=== PATIENT | female | born 1975 | race Hispanic/Latino ===

== ENCOUNTER 2019-09-24 23:15 | Emergency (ER) | payer OTHER, SELFPAY ==
[2019-09-24 23:25] VITALS: BP 153/75; PULSE 85; RESP 15; TEMP 36.7; O2SAT 100; BMI 30.7
--- NOTE | 2019-09-24 23:25 | ED_ITS ---
HPI - Dental/Oral General Chief complaint: Dental/Oral Stated complaint: left side jaw pain since dentist, into chest Time Seen by Provider: 09/24/19 23:25 History of Present Illness HPI Narrative: 44-year-old woman with recent dental work, distant root canal with crown recently placed on that tooth and amalgam fillings removed and replaced with porcelain has been having increasing temperature sensitivity in the left lower quadrant where the dental work has been done but she can not l ocalize it to the specific tooth. She had noticed increasing pain and tenderness and was started on clindamycin by her dentist and has had 4 doses. She is noticing that the pain is continuing to escalate and she is now having some swelling along the angle of the jaw with left anterior cervical adenopathy. She does not have trismus, no obviously pointing dental abscess, no drainage sensation in her mouth, no fevers. The pain is severe enough that is radiating into her jaw and down the side of her neck. She has been taking 800 mg of ibuprofen with Tylenol and is finding it ineffective in controlling her pain. She reports no chest pain, palpitations shortness of breath. Related Data Previous Rx's Medication Instructions Recorded triamcinolone acetonide 0 gm TOPICAL BID #15 gm 04/09/17 gabapentin 300 mg capsule 300 mg PO BEDTIME #30 cap 09/25/17 trazodone 100 mg tablet 100 mg PO HS #30 tab 02/05/18 cyclobenzaprine 10 mg tablet 10 mg PO BEDTIME #30 tab 08/10/18 metronidazole 500 mg PO TID #15 tab 09/24/19 Allergies Allergy/AdvReac Type Severity Reaction Status Date / Time ciprofloxacin [From CIPRO] Allergy Mild RASH Verified 08/10/18 13:24 Review of Systems Review of Systems Narrative: Remainder of review of systems including constitutional, ENT, cardiovascular, respiratory, GI, , musculoskeletal, skin, neurologic and psychiatric systems reviewed and are unremarkable except as noted in HPI. Patient History Surgical History History of breast augmentation Status post hernia repair (12/23/13) Status post laparoscopic cholecystectomy Status post tubal ligation Family History Brother CAD (coronary artery disease) Father Epilepsy Mother Age: 86 Diabetes mellitus Obesity High cholesterol Social History Smoking Status: Never smoker Exam Narrative Exam Narrative: General: Alert appropriate in no acute distress HEENT: Dentition is appropriate no redness in the left lower quadrant which is the area of tenderness. No discharge. She does have some fullness along the angle of the jaw and extending under the chin with anterior adenopathy. She is able to fully open her mouth and is not having any difficulty with swallowing fullness extending down her neck. Respiratory: Able to speak in full sentences, no obvious respiratory distress Skin: No obvious rashes, warm and dry Neurologic: Grossly intact no obvious asymmetries or abnormalities Psych, appropriate insight and affect, cooperative Initial Vital Signs Initial Vital Signs: Vital Signs Temperature 98.1 F 09/24/19 23:25 Pulse Rate 85 09/24/19 23:25 Respiratory Rate 15 09/24/19 23:25 Blood Pressure 153/75 H 09/24/19 23:25 Pulse Oximetry 100 09/24/19 23:25 Course Orders Ordered: Discontinued Medications Metronidazole (Metronidazole) 250 mg PO NOW ONE Stop: 09/24/19 23:40 Oxycodone/Acetaminophen (Percocet 5/325) 2 tab PO NOW ONE Stop: 09/24/19 23:40 Oxycodone/Acetaminophen (Endocet 5/325 Prepack) 1 bottle MISC SEEINSTR ONE Stop: 09/24/19 23:40 Vital Signs Vital signs: Vital Signs - 8 hr 09/24/19 23:25 Temperature 98.1 F Pulse Rate 85 Respiratory Rate 15 Blood Pressure 153/75 H Pulse Oximetry 100 MDM - Dental/Oral MDM Narrative Medical decision making narrative: Dental pain and tenderness in an area of recent dental work suspect that she has a dental infection and probably is going to need of root canal. Will add metronidazole to recurrent clindamycin and give her 10 tablets of Percocet to help with pain. She will contact her dentist tomorrow for definitive care. She is safe for home discharge Discharge Plan Departure Patient Disposition: Home Clinical Impression: Dental abscess Instructions: Tooth Abscess Activity Restrictions/Additional Instructions: Thank you for coming in today Dental pain can be so frustrating. Using 400 mg of ibuprofen (2 [id number] pills) and 1 Tylenol every 6 hours can be very helpful in controlling pain. For severe pain use 400 mg of ibuprofen and 1 Percocet every 6 hours. I am going to add an antibiotic called metronidazole/Flagyl to the clindamycin that you currently are taking. 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 The prescription has been electronically transmitted to [facility] in [facility]. Please call your dentist tomorrow for help in finding the underlying problem. Good luck Prescriptions: New metronidazole 500 mg tablet 500 mg PO TID Qty: 15 RF: 0 No Action cyclobenzaprine 10 mg tablet 10 mg PO BEDTIME Qty: 30 RF: 0 triamcinolone acetonide 0.1 % ointment 0 gm Topical BID Qty: 15 RF: 0 gabapentin 300 mg capsule 300 mg PO BEDTIME Qty: 30 RF: 2 trazodone 100 mg tablet 100 mg PO HS Qty: 30 RF: 2 Referrals: Deidre Enamorado ARNP [Primary Care Provider] -
[2019-09-24] MEDS: OXYCODONE/ACETAMINOPHEN 5/325 TABLET 2 TAB PO (23:49)
[2019-09-24] MEDS: OXYCODONE/APAP 5/325 PREPACK 1 BOTTLE MISC (23:49)
[2019-09-24] MEDS: metroNIDAZOLE 250 MG TABLET PO (23:49)
== END 2019-09-24 23:58 | disposition home or self-care (01) ==
PROVIDERS: Emergency Provider Emergency Medicine; PCP Internal Medicine
DX: K04.7 Periapical abscess without sinus (principal)
CPT/HCPCS: 99283

== ENCOUNTER 2019-09-25 18:44 | Emergency (ER) | payer OTHER, SELFPAY ==
--- NOTE | 2019-09-25 18:58 | ED.NAVMDI ---
HPI - Nausea/Vomiting/Diarrhea General Chief complaint: Nausea/Vomiting/Diarrhea Stated complaint: VOMITING Time Seen by Provider: 09/25/19 18:45 Source: patient and family Mode of arrival: Ambulatory Limitations: no limitations History of Present Illness HPI Narrative: 44-year-old female nonsmoker presents with her for the 2nd time for evaluation of ongoing dental pain with nausea and vomiting. She was seen by her dentist on Saturday and had a crown placed with replacement of porcelain on left lower teeth. She had been prescribed clindamycin and given Percocet but has had pain which is increasing. She denies any fever or chills. She has had no facial pain or swelling. She denies any chest pain or shortness of breath. She is not dizzy nor weak or lightheaded. She re-contacted her dentist but he is currently out of town until Saturday. She has not vomited in quite a few hours. She denies exposure to ill persons. She states it is not uncommon for her to have a ?weak stomach?. MD complaint: nausea and vomiting Onset (ago): hour(s) Description of Vomiting: food contents Description of Diarrhea: none Associated Abdominal Pain: No Exacerbating factors: vomiting and medication Context: recent antibiotic use Associated symptoms: denies other symptoms Related Data Previous Rx's Medication Instructions Recorded triamcinolone acetonide 0 gm TOPICAL BID #15 gm 04/09/17 gabapentin 300 mg capsule 300 mg PO BEDTIME #30 cap 09/25/17 trazodone 100 mg tablet 100 mg PO HS #30 tab 02/05/18 cyclobenzaprine 10 mg tablet 10 mg PO BEDTIME #30 tab 08/10/18 metronidazole 500 mg PO TID #15 tab 09/24/19 metronidazole 500 mg PO TID #15 tab 09/24/19 ondansetron 4 mg PO Q6H PRN #10 tab 09/25/19 Allergies Allergy/AdvReac Type Severity Reaction Status Date / Time ciprofloxacin [From CIPRO] Allergy Mild RASH Verified 08/10/18 13:24 Review of Systems Constitutional Constitutional: Denies chills, Denies fatigue, Denies fever(s), Denies frequent falls, Denies lethargy and Denies weakness Eyes Eyes: Denies change in vision, Denies eye discharge, Denies irritation and Denies loss of vision ENT Ears, Nose, Mouth, and Throat: Denies change in voice, Reports dental pain, Denies dizziness, Denies neck pain, Denies sore throat and Denies throat swelling Cardiovascular Cardiovascular: Denies chest pain, Denies irregular heart rhythm, Denies lightheadedness, Denies palpitations, Denies dyspnea, Denies dyspnea on exertion and Denies orthopnea Respiratory Respiratory: Denies cough, Denies dyspnea, Denies dyspnea on exertion and Denies wheezing Gastrointestinal Gastrointestinal: Denies abdominal pain, Denies change in bowel habits, Denies diarrhea, Reports nausea and Reports vomiting Musculoskeletal Musculoskeletal: Denies neck pain and Denies numbness Integumentary/Breasts Skin/Breast: Denies pruritus, Denies erythema, Denies rash and Denies wounds Neurologic Neurologic: Denies behavioral changes, Denies confusion, Denies dizziness, Denies frequent falls, Denies loss of vision, Denies numbness and Denies weakness Psychiatric Psychiatric: Denies anxiety, Denies behavioral changes, Denies confusion, Denies depression, Denies homicidal ideation and Denies suicidal ideation Endocrine Endocrine: Denies fatigue, Denies flushing and Denies palpitations Hematologic/Lymphatic Hematologic/Lymphatic: Denies easy bruising Allergic/Immunologic Allergic/Immunologic: Denies urticaria, Denies throat swelling and Denies wheezing Patient History Surgical History History of breast augmentation Status post hernia repair (12/23/13) Status post laparoscopic cholecystectomy Status post tubal ligation Family History Brother CAD (coronary artery disease) Father Epilepsy Mother Age: 86 Diabetes mellitus Obesity High cholesterol Social History Smoking Status: Never smoker Smoking Status: Never smoker Substance Use Type: does not use Exam Narrative Exam Narrative: GENERAL: [44] year old patient appears stated age. Well-nourished, well-developed patient, in mild distress. HEAD: Atraumatic. Normocephalic. EYES: Pupils equal round and reactive. Extraocular motions intact. No scleral icterus. No injection or drainage. ENT: No facial swelling or obvious intraoral abscess, swelling or drainage Nose without bleeding, purulent drainage. Throat without erythema, tonsillar hypertrophy or exudate. Airway patent. NECK: Trachea midline. Non tender CARDIOVASCULAR: Regular rate and rhythm without murmurs, gallops, or rubs. RESPIRATORY: Clear to auscultation. Breath sounds equal bilaterally. No wheezes, rales, or rhonchi. GASTROINTESTINAL: Abdomen soft, non-tender, nondistended. EXTREMITIES: No edema or joint tenderness. BACK: Nontender without deformity or crepitance. No flank tenderness. NEURO: AOx3. SKIN: No rash or erythema of visible areas Initial Vital Signs Initial Vital Signs: Vital Signs Temperature 98.4 F 09/25/19 19:05 Pulse Rate 99 H 09/25/19 19:05 Respiratory Rate 17 09/25/19 19:05 Blood Pressure 131/79 09/25/19 19:05 Pulse Oximetry 99 09/25/19 19:05 Course Orders Ordered: ED Orders 09/25/19 19:35 Basic Metabolic Panel Stat Complete Blood Count AUTO DIFF Stat Discontinued Medications Hydromorphone HCl (Dilaudid) 0.5 mg IV NOW ONE Stop: 09/25/19 19:47 Last Admin: 09/25/19 19:49 Dose: 0.5 mg Documented by: ANURADHA Sodium Chloride (Normal Saline 0.9%) 1,000 mls @ 1,000 mls/hr IV BOLUS ONE Stop: 09/25/19 20:11 Last Infusion: 09/25/19 21:01 Dose: 0 mls/hr Documented by: Admin: 09/25/19 19:50 Dose: 1,000 mls/hr Documented by: ANURADHA Ondansetron HCl (Zofran) 4 mg IV Q4HR PRN PRN Reason: Nausea And Vomiting Last Admin: 09/25/19 19:49 Dose: 4 mg Documented by: ANURADHA Ondansetron HCl (Zofran Odt Prepack) 1 bottle MISC SEEINSTR ONE Stop: 09/25/19 20:35 Last Admin: 09/25/19 20:48 Dose: 1 bottle Documented by: NAVJOT Pantoprazole Sodium (Protonix) 40 mg IV NOW ONE Stop: 09/25/19 19:13 Last Admin: 09/25/19 19:49 Dose: 40 mg Documented by: ANURADHA Vital Signs Vital signs: Vital Signs - 8 hr 09/25/19 19:05 09/25/19 20:50 Temperature 98.4 F Pulse Rate 99 H 87 Respiratory Rate 17 Blood Pressure 131/79 130/78 Pulse Oximetry 99 98 MDM - Nausea/Vomiting/Diarrhea Lab Data Result diagrams: 09/25/19 19:35 09/25/19 19:35 Labs: Lab Results 09/25/19 09/25/19 Range/Units 19:35 19:35 WBC 11.1 H (4.5-11.0) X10^3/uL RBC 4.56 (4.0-5.2) X10^6/uL Hgb 14.8 (12.0-16.0) g/dL Hct 43.2 (36-46) % MCV 94.8 (80-100) fL MCH 32.4 (26-34) PG MCHC 34.2 (30-36) % RDW 12.6 (11.6-14.8) % Plt Count 253 (150-400) X10^3/uL Neut % (Auto) 85.9 H (50-75) % Lymph % (Auto) 8.3 L (25-40) % [place] % (Auto) 5.4 (3-14) % Eos % (Auto) 0.1 L (2-4) % Baso % (Auto) 0.3 (0-2) % Neut # (Auto) 9500 H (7695-5099) /uL Lymph # (Auto) 900 L (5081-3981) /uL [place] # (Auto) 600 (0-900) /uL Eos # (Auto) 0 (0-450) /uL Baso # (Auto) 0 (0-100) /uL Sodium 136 L (137-145) mmol/L Potassium 4.2 (3.4-5.1) mmol/L Chloride 101 (98-107) mmol/L Carbon Dioxide 25 (22-32) mmol/L BUN 15 (7-17) mg/dL Creatinine 0.40 L (0.52-1.04) mg/dL Estimated GFR > 60.0 (>60) mL/min BUN/Creatinine Ratio 37.5 H (6-22) Glucose 93 (70-100) mg/dL Calcium 9.4 (8.4-10.2) mg/dL Discharge Plan Departure Patient Disposition: Home Clinical Impression: Dehydration, Acute vomiting Discharge Date/Time: 09/25/19 20:50 Instructions: DI for Dehydration -- Adult, DI for Vomiting -- Adult Activity Restrictions/Additional Instructions: 1. Drink plenty of fluids with frequent small sips. 2. For the next 24 hours a clear liquid diet is advised. After that please employ a brat diet which would include bananas, rice, apples, toast. 3. There is currently no sign of infection, given how sensitive you are to antibiotics I think it is reasonable to not take them until you follow up with your dentist. 4. Please follow-up with your dentist in the next 1-2 days. Call the office for an appointment. 5. Please return to the emergency Department for any worsening or persistent symptoms, such as increasing pain or fever. Prescriptions: New ondansetron 4 mg tablet,disintegrating 4 mg PO Q6H PRN (Reason: nausea and vomiting) Qty: 10 RF: 0 No Action cyclobenzaprine 10 mg tablet 10 mg PO BEDTIME Qty: 30 RF: 0 triamcinolone acetonide 0.1 % ointment 0 gm Topical BID Qty: 15 RF: 0 gabapentin 300 mg capsule 300 mg PO BEDTIME Qty: 30 RF: 2 trazodone 100 mg tablet 100 mg PO HS Qty: 30 RF: 2 metronidazole 500 mg tablet 500 mg PO TID Qty: 15 RF: 0 metronidazole 500 mg tablet 500 mg PO TID Qty: 15 RF: 0 Referrals: Deidre Enamorado ARNP [Primary Care Provider] -
[2019-09-25 19:05] VITALS: BP 131/79; PULSE 99; RESP 17; TEMP 36.9; O2SAT 99; BMI 30.7
--- NOTE | 2019-09-25 19:38 | PC.NURSE ---
reports she has trouble taking medications. seen here for tooth pain yesterday and given abx and pain medication. states she did not take the flagyl. she took the ciprofloxacin today and vomited immediatley afterwards. Reports tooth pain. provider aware and aknowledged information.
[2019-09-25 19:39] LABS: Add Manual Diff / Slide Review NO; Basophils Absolute Auto 0 /uL (0-100); Basophils Percent Auto 0.3 % (0-2); Eosinophils Absolute Auto 0 /uL (0-450); Eosinophils Percent Auto 0.1 % (2-4); Hematocrit 43.2 % (36-46); Hemoglobin 14.8 g/dL (12.0-16.0); Lymphocytes Absolute Auto 900 /uL (1100-4500); Lymphocytes Percent Auto 8.3 % (25-40); Mean Corpuscular HGB Conc 34.2 % (30-36); Mean Corpuscular Hemoglobin 32.4 PG (26-34); Mean Corpuscular Volume 94.8 fL (80-100); Monocytes Absolute Auto 600 /uL (0-900); Monocytes Percent Auto 5.4 % (3-14); Neutrophils Absolute Auto 9500 /uL (1500-7000); Neutrophils Percent Auto 85.9 % (50-75); Platelet Count 253 X10^3/uL (150-400); Red Blood Cell Count 4.56 X10^6/uL (4.0-5.2); Red Cell Distribution Width 12.6 % (11.6-14.8); White Blood Cell Count 11.1 X10^3/uL (4.5-11.0)
[2019-09-25] MEDS: HYDROMORPHONE 0.5 MG INJ IV (19:49)
[2019-09-25] MEDS: PANTOPRAZOLE 40 MG VIAL IV (19:49)
[2019-09-25] MEDS: ONDANSETRON 4 MG/2 ML INJ IV (19:49)
[2019-09-25] MEDS: SODIUM CHLORIDE 0.9% 1,000 ML 1000 ML IV (19:50)
[2019-09-25 19:51] LABS: BUN Creatinine Ratio 37.5 (6-22); Blood Urea Nitrogen 15 mg/dL (7-17); Calcium 9.4 mg/dL (8.4-10.2); Carbon Dioxide 25 mmol/L (22-32); Chloride 101 mmol/L (98-107); Estimated Glomerular Filt Rate > 60.0 mL/min (>60); Glucose 93 mg/dL (70-100); HEMOLYSIS 40 (0-50); Potassium 4.2 mmol/L (3.4-5.1); Sodium 136 mmol/L (137-145)
[2019-09-25] MEDS: ONDANSETRON 4 MG ODT PREPACK 1 BOTTLE MISC (20:48)
[2019-09-25 20:50] VITALS: BP 130/78; PULSE 87; O2SAT 98
== END 2019-09-25 20:50 | disposition home or self-care (01) ==
PROVIDERS: Emergency Provider Emergency Medicine; PCP Internal Medicine
DX: E86.0 Dehydration (principal); R11.2 Nausea with vomiting, unspecified; K08.89 Other specified disorders of teeth and supporting structures
CPT/HCPCS: 36415; 80048; 85025; 96361; 96374; 96375; 99284; C9113; J1170; J2405

== ENCOUNTER 2020-04-29 12:28 | Emergency (ER) | payer OTHER, SELFPAY ==
[2020-04-29 12:41] VITALS: BP 118/70; PULSE 83; RESP 14; TEMP 36.3; O2SAT 98
[2020-04-29 13:01] LABS: Appearance Urine UA CLOUDY; Bilirubin Urine UA NEGATIVE (NEGATIVE); Color Urine UA RED; Glucose Urine UA NEGATIVE (Negative); Ketones Urine UA NEGATIVE (NEGATIVE); Leukocyte Esterase Urine UA TRACE (NEGATIVE); Nitrite Urine UA NEGATIVE (Negative); Occult Blood Urine UA 3+ (Negative); Protein Urine UA TRACE (Negative); Specific Gravity Urine UA 1.015 (1.000-1.035); Urobilinogen Urine UA 0.2 E.U./dL (0.2)
[2020-04-29 13:09] LABS: Bacteria Urine Occasional (0-1); Culture Indicated Urine Specimen Cultured; RBC Urine 30-100/HPF (0-5/HPF); Squamous Epithelial Cell Urine 0-1 /HPF (0-5/HPF); WBC Urine 1-5/HPF (0-5/HPF)
[2020-04-29 14:00] LABS: Add Manual Diff / Slide Review NO; Basophils Absolute Auto 0 /uL (0-100); Basophils Percent Auto 0.4 % (0-2); Eosinophils Absolute Auto 100 /uL (0-450); Eosinophils Percent Auto 1.3 % (2-4); Hematocrit 40.8 % (36-46); Hemoglobin 14.1 g/dL (12.0-16.0); Lymphocytes Absolute Auto 2000 /uL (1100-4500); Lymphocytes Percent Auto 26.2 % (25-40); Mean Corpuscular HGB Conc 34.6 % (30-36); Mean Corpuscular Hemoglobin 31.9 PG (26-34); Mean Corpuscular Volume 92.2 fL (80-100); Monocytes Absolute Auto 400 /uL (0-900); Monocytes Percent Auto 5.7 % (3-14); Neutrophils Absolute Auto 5000 /uL (1500-7000); Neutrophils Percent Auto 66.4 % (50-75); Platelet Count 297 X10^3/uL (150-400); Red Blood Cell Count 4.42 X10^6/uL (4.0-5.2); Red Cell Distribution Width 13.3 % (11.6-14.8); White Blood Cell Count 7.5 X10^3/uL (4.5-11.0)
[2020-04-29 14:16] LABS: BUN Creatinine Ratio 21.3 (6-22); Blood Urea Nitrogen 13 mg/dL (7-17); Calcium 9.4 mg/dL (8.4-10.2); Carbon Dioxide 29 mmol/L (22-32); Chloride 104 mmol/L (98-107); Estimated Glomerular Filt Rate > 60.0 mL/min (>60); Glucose 93 mg/dL (70-100); HEMOLYSIS < 15 (0-50); Potassium 4.6 mmol/L (3.4-5.1); Sodium 137 mmol/L (137-145)
--- NOTE | 2020-04-29 14:48 | DI.US.S_ITS ---
PROCEDURE: US PELVIC COMPLETE INDICATIONS: LOWER ABDOMINAL PAIN LEFT > RIGHT AND FREQUENT BLEEDING TECHNIQUE: Real-time scanning was performed of the pelvic organs, with image documentation. Additional endovaginal scanning was necessary due to incomplete visualization of the adnexal and endometrial structures by transabdominal scanning. COMPARISON: CT, ABDOMEN/PELVIS WITH CONTRAST, 06/26/2013, 9:47. US, ABDOMEN COMPLETE, 08/06/2016, 8:02. [facility], US, PELVIC COMPLETE, 08/06/2016, 8:23. FINDINGS: Uterus: Uterus is anteverted measuring 6.2 x 4.2 x 5.6 cm. The endometrium measures 4.6 mm in combined thickness. There is a nabothian cyst in cervix. Ovaries: Right ovary measures 1.4 x 2.0 x 2.8 cm. Left ovary measures 2.2 x 1.9 x 1.4 cm. Other: No pathologic free abdominal or pelvic fluid. IMPRESSION: Unremarkable pelvic ultrasound. No findings to explain lower abdominal pain. Dictated by: Cristopher Regan M.D. on 04/29/2020 at 16:20 Approved by: Cristopher Regan M.D. on 04/29/2020 at 16:22
--- NOTE | 2020-04-29 16:16 | ED_ITS ---
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 Patient reports normal LMP 04/02/2020 which lasted for 4 days and usually she has once a month menstruation. Patient states last week during visits to [place], she had another light menstruation for 3 days. Then again heavy menses recurred yesterday with suprapubic pain radiating to back. She describes her pain as sharp but denies nausea, vomiting, chest pain, breathing difficulty, or lightheadedness. Patient had taken [id number] 2 ibuprofen and 1 Tylenol at 9:00 a.m. today which helped with her symptoms. Patient also had a episode of diarrhea today. Patient also states discomfort after intercourse and has mild vaginal spotting recently. Patient reports 1 sexual partner, her , and no history of STIs or unusual vaginal discharge. Patient had normal Pap smear test 1 week ago. Patient mentioned dyspareunia to her PCP ANDREA Enamorado and she refer her to ultrasound test which she has set up next week along screening mammogram. Patient contacted her PCP's office and they recommended her to be seen at emergency room for on evaluation and treatment. Patient reports she used to have occasional UTIs but since patient increased water intake up to 8 large glasses daily, this has not recurred. Patient denies urinary symptoms at this time, or fever or chills. Patient is however concerned for ovarian cancer. Related Data Previous Rx's Medication Instructions Recorded triamcinolone acetonide 0 gm TOPICAL BID #15 gm 04/09/17 gabapentin 300 mg capsule 300 mg PO BEDTIME #30 cap 09/25/17 trazodone 100 mg tablet 100 mg PO HS #30 tab 02/05/18 cyclobenzaprine 10 mg tablet 10 mg PO BEDTIME #30 tab 08/10/18 metronidazole 500 mg PO TID #15 tab 09/24/19 metronidazole 500 mg PO TID #15 tab 09/24/19 ondansetron 4 mg PO Q6H PRN #10 tab 09/25/19 Allergies Allergy/AdvReac Type Severity Reaction Status Date / Time ciprofloxacin [From CIPRO] Allergy Mild RASH Verified 08/10/18 13:24 Review of Systems <PADMA Elaine - Last Filed: 04/29/20 20:08> Review of Systems Narrative: General: Denies fever, chills, fatigue, malaise, sweats. HEENT: Denies sinus pain, ear pain, sore throat, difficulty swallowing, dizziness. Respiratory: Denies dyspnea, cough, wheezing, hemoptysis, sputum. Cardiovascular: Denies chest pain, palpitations, orthopnea, edema. Gastrointestinal: See HPI : See HPI Musculoskeletal: Denies weakness, joint pain or bony pain. Skin: Denies rash, skin lesions, or other. Neurologic: Denies weakness, headache, numbness, change in speech, confusion, seizures, incoordination. Psychiatric: No concerning psychosocial issues. 12-point review of systems is negative except for those stated above. Patient History <PADMA Elaine - Last Filed: 04/29/20 20:08> Surgical History History of breast augmentation Status post hernia repair (12/23/13) Status post laparoscopic cholecystectomy Status post tubal ligation Family History Brother CAD (coronary artery disease) Father Epilepsy Mother Age: 87 Diabetes mellitus Obesity High cholesterol Smoking Status: Never smoker alcohol intake frequency: holidays/special occasions only Substance Use Type: does not use Exam <PADMA Elaine - Last Filed: 04/29/20 20:08> Narrative Exam Narrative: GEN: Alert, oriented x 3, well appearing and nourished, and in no acute distress. Head: Normal cephalic, atraumatic. No scalp or temporal tenderness, palpable mass or rash. EYES: Pupils are equal, round, and reactive to light and accommodation. Extraocular muscles are intact bilaterally. There is no subconjunctival hemorrhage, exudate and sclera non-icteric. ENT: earing grossly intact. Nose without bleeding, purulent discharge or deviation. Mucous membrane moist, no mucosal lesion. Throat without erythema, tonsillar hypertrophy or exudate. Uvula in midline, airway patent. Neck: Trachea in midline. No JVD, non-tender without lymphadenopathy. No masses or thyroid megaly. Supple, non-tender and no meningeal signs. CARDIAC: Normal regular rate and rhythm without murmurs, gallops, or rubs. No chest wall tenderness. No peripheral edema, cyanosis or pallor. Capillary refill is less than 2 seconds. RESPIRATORY: Lungs are clear to auscultate bilaterally. No cough, wheezes, rales, or rhonchi. No stridor, respiratory distress, increase work of breathing, or accessary muscle used. ABD: Abdomen soft and non-distended. Mild tenderness to palpate in left lower quadrant. No guarding or rebound tenderness to palpate. Bowel sounds are normal in all 4 quadrants. There is no palpable masses or organomegaly. EXT: Full painless ROM of all extremities with no loss of sensation, strength, effusion or edema. SKIN: Warm, dry, normal color for patient. No erythema, lesions or rash over vi sible areas. BACK: Nontender without deformity or crepitance. No flank tenderness. NEUROLOGICAL: Alert and oriented to place, time and person. Sensation and motor function intact bilaterally. No facial droops, dysphasia. PSYCHIATRIC: Good judgement and reason, without hallucinations, abnormal affect or abnormal behaviors during the examination. Patient is not suicidal. Initial Vital Signs Initial Vital Signs: Vital Signs Temperature 97.3 F L 04/29/20 12:41 Pulse Rate 83 04/29/20 12:41 Respiratory Rate 14 04/29/20 12:41 Blood Pressure 118/70 04/29/20 12:41 Pulse Oximetry 98 04/29/20 12:41 External Female Exam: normal external appearance Speculum Exam - Vagina: normal appearance of the vagina, no lesions, vaginal bleeding (Scant amount dark blood), no masses and nontender Bimanual Exam- Adnexa, other: normal adnexae OB/External & Speculum: vaginal bleeding (Scant amount dark blood) <Lea Harris DO - Last Filed: 04/30/20 10:53> Initial Vital Signs Initial Vital Signs: Vital Signs Temperature 97.3 F L 04/29/20 12:41 Pulse Rate 83 04/29/20 12:41 Respiratory Rate 14 04/29/20 12:41 Blood Pressure 118/70 04/29/20 12:41 Pulse Oximetry 98 04/29/20 12:41 Scores <Pablito BanuelosRachaelPADMA Perez - Last Filed: 04/29/20 20:08> GCS Stanley coma scale eye opening: Spontaneous [place] coma scale verbal response: Orientated Stanley coma scale motor response: Obey commands [place] coma scale total score: 15 Course <Pablito BanuelosDarlenePADMA ludwig - Last Filed: 04/29/20 20:08> Orders Ordered: ED Orders 04/29/20 12:48 Chlamydia Gonorrhea PCR -URINE Stat Urinalysis and Microscopic Stat Urine Culture Stat 04/29/20 13:53 Basic Metabolic Panel Stat Complete Blood Count AUTO DIFF Stat 04/29/20 14:48 US pelvic complete Stat Vital Signs Vital signs: Vital Signs - 8 hr 04/29/20 12:41 Temperature 97.3 F L Pulse Rate 83 Respiratory Rate 14 Blood Pressure 118/70 Pulse Oximetry 98 <Lea Harris DO - Last Filed: 04/30/20 10:53> Orders Ordered: ED Orders 04/29/20 12:48 Chlamydia Gonorrhea PCR -URINE Stat Urinalysis and Microscopic Stat Urine Culture Stat 04/29/20 13:53 Basic Metabolic Panel Stat Complete Blood Count AUTO DIFF Stat 04/29/20 14:48 US pelvic complete Stat Vital Signs Vital signs: Vital Signs - 8 hr 04/29/20 12:41 Temperature 97.3 F L Pulse Rate 83 Respiratory Rate 14 Blood Pressure 118/70 Pulse Oximetry 98 MDM - Female Genitourinary <Pablito BanuelosDarlenePATRICIA ludwigP - Last Filed: 04/29/20 20:08> Differential Diagnosis Differential diagnosis: Likely urinary tract infection, ruptured ovarian cyst, dysmenorrhea and other (ovarian cyst, irregular vaginal bleed, near menopause, uterine neoplasm) Medical Records Attestation: I reviewed the patient's medical records. Lab Data Attestation: I reviewed the patient's lab results. Result diagrams: 04/29/20 13:53 04/29/20 13:53 Labs: Lab Results 04/29/20 04/29/20 04/29/20 Range/Units 12:48 12:48 13:53 WBC 7.5 (4.5-11.0) X10^3/uL RBC 4.42 (4.0-5.2) X10^6/uL Hgb 14.1 (12.0-16.0) g/dL Hct 40.8 (36-46) % MCV 92.2 (80-100) fL MCH 31.9 (26-34) PG MCHC 34.6 (30-36) % RDW 13.3 (11.6-14.8) % Plt Count 297 (150-400) X10^3/uL Neut % (Auto) 66.4 (50-75) % Lymph % (Auto) 26.2 (25-40) % Darke % (Auto) 5.7 (3-14) % Eos % (Auto) 1.3 L (2-4) % Baso % (Auto) 0.4 (0-2) % Neut # (Auto) 5000 (1444-3204) /uL Lymph # (Auto) 2000 (9604-8569) /uL Darke # (Auto) 400 (0-900) /uL Eos # (Auto) 100 (0-450) /uL Baso # (Auto) 0 (0-100) /uL Sodium (137-145) mmol/L Potassium (3.4-5.1) mmol/L Chloride (98-107) mmol/L Carbon Dioxide (22-32) mmol/L BUN (7-17) mg/dL Creatinine (0.52-1.04) mg/dL Estimated GFR (>60) mL/min BUN/Creatinine Ratio (6-22) Glucose (70-100) mg/dL Calcium (8.4-10.2) mg/dL Urine Color Red Urine Appearance Cloudy Urine pH 7.0 (4.5-8.0) Ur Specific [place] 1.015 (1.000-1.035) Urine Protein Trace H (Negative) Urine Glucose (UA) Negative (Negative) g/dL Urine Ketones Negative (NEGATIVE) Urine Occult Blood 3+ H (Negative) Urine Nitrate Negative (Negative) Urine Bilirubin Negative (NEGATIVE) Urine Urobilinogen 0.2 (0.2) E.U./dL Ur Leukocyte Esterase Trace H (NEGATIVE) Urine RBC 30-100/hpf H (0-5/HPF) Urine WBC 1-5/hpf (0-5/HPF) Ur Squamous Epith Cells 0-1 /hpf (0-5/HPF) Urine Bacteria Occasional (0-1) (None) Ur Culture Indicated? Specimen cultured Ur Chlamydia DNA (PCR) Not detected N gonorrhoeae DNA (PCR) Not detected 04/29/20 Range/Units 13:53 WBC (4.5-11.0) X10^3/uL RBC (4.0-5.2) X10^6/uL Hgb (12.0-16.0) g/dL Hct (36-46) % MCV (80-100) fL MCH (26-34) PG MCHC (30-36) % RDW (11.6-14.8) % Plt Count (150-400) X10^3/uL Neut % (Auto) (50-75) % Lymph % (Auto) (25-40) % Darke % (Auto) (3-14) % Eos % (Auto) (2-4) % Baso % (Auto) (0-2) % Neut # (Auto) (4328-7774) /uL Lymph # (Auto) (7035-9736) /uL Darke # (Auto) (0-900) /uL Eos # (Auto) (0-450) /uL Baso # (Auto) (0-100) /uL Sodium 137 (137-145) mmol/L Potassium 4.6 (3.4-5.1) mmol/L Chloride 104 (98-107) mmol/L Carbon Dioxide 29 (22-32) mmol/L BUN 13 (7-17) mg/dL Creatinine 0.61 (0.52-1.04) mg/dL Estimated GFR > 60.0 (>60) mL/min BUN/Creatinine Ratio 21.3 (6-22) Glucose 93 (70-100) mg/dL Calcium 9.4 (8.4-10.2) mg/dL Urine Color Urine Appearance Urine pH (4.5-8.0) Ur Specific [place] (1.000-1.035) Urine Protein (Negative) Urine Glucose (UA) (Negative) g/dL Urine Ketones (NEGATIVE) Urine Occult Blood (Negative) Urine Nitrate (Negative) Urine Bilirubin (NEGATIVE) Urine Urobilinogen (0.2) E.U./dL Ur Leukocyte Esterase (NEGATIVE) Urine RBC (0-5/HPF) Urine WBC (0-5/HPF) Ur Squamous Epith Cells (0-5/HPF) Urine Bacteria (None) Ur Culture Indicated? Ur Chlamydia DNA (PCR) N gonorrhoeae DNA (PCR) Point of Care Testing Test Results Negative Imaging Data US - GRAVITY PROSPECTOR: Radiologist's Impression: [address] [id number] ReportSigned Patient: Lisandro GoodwinaMR#: [id number]: [id number]:[id number]/Sex: 44 / FDate of Service: 04/29/20Loc: EDAccession Number: [id number] Procedure: US pelvic complete Ordering Provider: Pablito Domínguez PROCEDURE: US PELVIC COMPLETE INDICATIONS: LOWER ABDOMINAL PAIN LEFT > RIGHT AND FREQUENT BLEEDING TECHNIQUE: Real-time scanning was performed of the pelvic organs, with image documentation. Additional endovaginal scanning was necessary due to incomplete visualization of the adnexal and endometrial structures by transabdominal scanning. COMPARISON: CT, ABDOMEN/PELVIS WITH CONTRAST, 06/26/2013, 9:47. US, ABDOMEN COMPLETE, 08/06/2016, 8:02. [facility], US, PELVIC COMPLETE, 08/06/2016, 8:23. FINDINGS: Uterus: Uterus is anteverted measuring 6.2 x 4.2 x 5.6 cm. The endometrium measures 4.6 mm in combined thickness. There is a nabothian cyst in cervix. Ovaries: Right ovary measures 1.4 x 2.0 x 2.8 cm. Left ovary measures 2.2 x 1.9 x 1.4 cm. Other: No pathologic free abdominal or pelvic fluid. IMPRESSION: Unremarkable pelvic ultrasound. No findings to explain lower abdominal pain. Dictated by: Cristopher Regan M.D. on 04/29/2020 at 16:20 Approved by: Cristopher Regan M.D. on 04/29/2020 at 16:22 MDM Narrative Medical decision making narrative: This is a 44 year female presents to ED with chief complain of low abdominal pain with frequent menses and dysmenorrhea during last 1 month. Physical exam is unremarkable except mild tenderness to palpate in left lower quadrant. Pelvic exam unremarkable except scant amount of dark vaginal bleeding in vaginal vault appreciated. Labs are assuring. Within normal H&H of 14.1/40.8. No leukocytosis. Unremarkable chemistry test. Negative urine hCG. Urine test shows trace of leuks with negative nitrate. WBC urine 1-5/HPF with occasional bacteria. Urine culture is pending. Patient reports no significant concerns for STI but agrees with testing. Urine GC chlamydia tests was negative. Findings were shared with patient and patient would like to go ahead ultrasound pelvic exam to be done today and not waiting till next week. Pelvic ultrasound does not show acute findings with normal endometrium thickness and normal ovaries. It is not clear the etiology of patient's abdominal pain and irregular menstruations. She may experiencing early perimenopausal symptoms. Findings were shared with patient and advised to follow up with primary care physician. Return precautions discussed and she verbalized understanding in agreement with the treatment plan. <Lea Harris, DO - Last Filed: 04/30/20 10:53> Lab Data Labs: Lab Results 04/29/20 04/29/20 04/29/20 Range/Units 12:48 12:48 13:53 WBC 7.5 (4.5-11.0) X10^3/uL RBC 4.42 (4.0-5.2) X10^6/uL Hgb 14.1 (12.0-16.0) g/dL Hct 40.8 (36-46) % MCV 92.2 (80-100) fL MCH 31.9 (26-34) PG MCHC 34.6 (30-36) % RDW 13.3 (11.6-14.8) % Plt Count 297 (150-400) X10^3/uL Neut % (Auto) 66.4 (50-75) % Lymph % (Auto) 26.2 (25-40) % Darke % (Auto) 5.7 (3-14) % Eos % (Auto) 1.3 L (2-4) % Baso % (Auto) 0.4 (0-2) % Neut # (Auto) 5000 (5648-7393) /uL Lymph # (Auto) 2000 (6177-3806) /uL Darke # (Auto) 400 (0-900) /uL Eos # (Auto) 100 (0-450) /uL Baso # (Auto) 0 (0-100) /uL Sodium (137-145) mmol/L Potassium (3.4-5.1) mmol/L Chloride (98-107) mmol/L Carbon Dioxide (22-32) mmol/L BUN (7-17) mg/dL Creatinine (0.52-1.04) mg/dL Estimated GFR (>60) mL/min BUN/Creatinine Ratio (6-22) Glucose (70-100) mg/dL Calcium (8.4-10.2) mg/dL Urine Color Red Urine Appearance Cloudy Urine pH 7.0 (4.5-8.0) Ur Specific [place] 1.015 (1.000-1.035) Urine Protein Trace H (Negative) Urine Glucose (UA) Negative (Negative) g/dL Urine Ketones Negative (NEGATIVE) Urine Occult Blood 3+ H (Negative) Urine Nitrate Negative (Negative) Urine Bilirubin Negative (NEGATIVE) Urine Urobilinogen 0.2 (0.2) E.U./dL Ur Leukocyte Esterase Trace H (NEGATIVE) Urine RBC 30-100/hpf H (0-5/HPF) Urine WBC 1-5/hpf (0-5/HPF) Ur Squamous Epith Cells 0-1 /hpf (0-5/HPF) Urine Bacteria Occasional (0-1) (None) Ur Culture Indicated? Specimen cultured Ur Chlamydia DNA (PCR) Not detected N gonorrhoeae DNA (PCR) Not detected 04/29/20 Range/Units 13:53 WBC (4.5-11.0) X10^3/uL RBC (4.0-5.2) X10^6/uL Hgb (12.0-16.0) g/dL Hct (36-46) % MCV (80-100) fL MCH (26-34) PG MCHC (30-36) % RDW (11.6-14.8) % Plt Count (150-400) X10^3/uL Neut % (Auto) (50-75) % Lymph % (Auto) (25-40) % Darke % (Auto) (3-14) % Eos % (Auto) (2-4) % Baso % (Auto) (0-2) % Neut # (Auto) (9591-4335) /uL Lymph # (Auto) (1813-8712) /uL Darke # (Auto) (0-900) /uL Eos # (Auto) (0-450) /uL Baso # (Auto) (0-100) /uL Sodium 137 (137-145) mmol/L Potassium 4.6 (3.4-5.1) mmol/L Chloride 104 (98-107) mmol/L Carbon Dioxide 29 (22-32) mmol/L BUN 13 (7-17) mg/dL Creatinine 0.61 (0.52-1.04) mg/dL Estimated GFR > 60.0 (>60) mL/min BUN/Creatinine Ratio 21.3 (6-22) Glucose 93 (70-100) mg/dL Calcium 9.4 (8.4-10.2) mg/dL Urine Color Urine Appearance Urine pH (4.5-8.0) Ur Specific [place] (1.000-1.035) Urine Protein (Negative) Urine Glucose (UA) (Negative) g/dL Urine Ketones (NEGATIVE) Urine Occult Blood (Negative) Urine Nitrate (Negative) Urine Bilirubin (NEGATIVE) Urine Urobilinogen (0.2) E.U./dL Ur Leukocyte Esterase (NEGATIVE) Urine RBC (0-5/HPF) Urine WBC (0-5/HPF) Ur Squamous Epith Cells (0-5/HPF) Urine Bacteria (None) Ur Culture Indicated? Ur Chlamydia DNA (PCR) N gonorrhoeae DNA (PCR) Point of Care Testing Test Results Negative Discharge Plan Departure Patient Disposition: Home Clinical Impression: Pelvic pain, Vaginal bleeding, abnormal Instructions: DI for Pelvic Pain Activity Restrictions/Additional Instructions: You have been diagnosed with [irregular menstruations last month pelvic pain. Pelvic ultrasound without acute findings with normal ovaries and uterus lining and no free pelvic fluid. Blood tests are assuring. Negative indications for GC chlamydia infection]. What to do: *Take your medications as directed. You can take gwny-blq-mcnouga Tylenol and Motrin as needed for discomfort. Warm packs on lower abdomen which may help with discomfort. *Follow up with your primary care provider in 2-3 days, call for an appointment. Let them know you were seen in the ED and that we asked you to be seen in follow up. *Return to ED if you have any new, worsening, or concerning symptoms, such as [severe bleeding that you have to change pads every hour for 3 hours, chest pain, breathing difficulty, near passing out, fever, unusual urinary symptoms or any acute concerns]. Prescriptions: No Action cyclobenzaprine 10 mg tablet 10 mg PO BEDTIME Qty: 30 RF: 0 triamcinolone acetonide 0.1 % ointment 0 gm Topical BID Qty: 15 RF: 0 gabapentin 300 mg capsule 300 mg PO BEDTIME Qty: 30 RF: 2 trazodone 100 mg tablet 100 mg PO HS Qty: 30 RF: 2 ondansetron 4 mg tablet,disintegrating 4 mg PO Q6H PRN (Reason: nausea and vomiting) Qty: 10 RF: 0 metronidazole 500 mg tablet 500 mg PO TID Qty: 15 RF: 0 metronidazole 500 mg tablet 500 mg PO TID Qty: 15 RF: 0 Referrals: Deidre Enamorado ARNP [Primary Care Provider] - <Lea Harris DO - Last Filed: 04/30/20 10:53> Cosign ED Attending Jose Attestation: I was immediately available in the department for consultation. Documentation has been reviewed.
[2020-04-29 16:26] LABS: Urine N gonorrhoeae NOT DETECTED
[2020-04-29 16:29] LABS: Urine Chlamydia NOT DETECTED
== END 2020-04-29 17:21 | disposition home or self-care (01) ==
PROVIDERS: Emergency Medicine; Emergency Provider Nurse Practitioner Family; PCP Internal Medicine
DX: R10.2 Pelvic and perineal pain (principal); N93.9 Abnormal uterine and vaginal bleeding, unspecified
CPT/HCPCS: 36415; 76830; 76856; 80048; 81001; 81025; 85025; 87077; 87086; 87147; 87491; 87591; 99283; 99284

== ENCOUNTER → 2020-05-03 08:06 | Outpatient (CLI) | payer OTHER, SELFPAY ==
[2020-05-03 09:46] LABS: Alanine Aminotransferase 20 IU/L (<35); Albumin 4.3 g/dL (3.5-5.0); Albumin Globulin Ratio 1.4 (1.0-2.8); Alkaline Phosphatase 70 U/L (38-126); Aspartate Aminotransferase 27 IU/L (14-36); BUN Creatinine Ratio 27.9 (6-22); Bilirubin Total 0.3 mg/dL (0.2-1.3); Blood Urea Nitrogen 17 mg/dL (7-17); Calcium 9.2 mg/dL (8.4-10.2); Carbon Dioxide 30 mmol/L (22-32); Chloride 104 mmol/L (98-107); Cholesterol 212 mg/dL (140-199); Estimated Glomerular Filt Rate > 60.0 mL/min (>60); Glucose 86 mg/dL (70-100); HDL Cholesterol 51 mg/dL (40-60); HEMOLYSIS < 15 (0-50); LDL Cholesterol Calculated 137 mg/dL (<100); Potassium 4.3 mmol/L (3.4-5.1); Sodium 139 mmol/L (137-145); Total Protein 7.3 g/dL (6.3-8.2); Triglycerides 122 mg/dL (35-150)
[2020-05-03 10:22] LABS: Thyroid Stimulating Hormone 3.08 uIU/mL (0.47-4.68)
== END ==
PROVIDERS: PCP Internal Medicine; Referring Provider Internal Medicine; Visit Provider Internal Medicine
DX: Z00.00 Encounter for general adult medical examination without abnormal findings (principal)
CPT/HCPCS: 36415; 80053; 80061; 84443

== ENCOUNTER → 2020-05-05 10:11 | Outpatient (CLI) | payer OTHER, SELFPAY ==
--- NOTE | 2020-05-05 | DI.MG.S_ITS ---
BILATERAL DIGITAL SCREENING MAMMOGRAM 3D/2D WITH CAD WITH AUGMENTATION: 05/05/2020 CLINICAL: Routine screening. Baseline exam. No prior exams were available for comparison. There are scattered fibroglandular elements in both breasts. Current study was also evaluated with a Computer Aided Detection (CAD) system. Bilateral breast implants are intact. No significant masses, calcifications, or other findings are seen in either breast. IMPRESSION: NEGATIVE There is no mammographic evidence of malignancy. A 1 year screening mammogram is recommended. This exam was interpreted at Station ID: [id number]. NOTE: For mammograms, a report in lay terms will be sent to the patient. Approximately 15% of breast malignancies will not be visualized mammographically. In the management of a palpable breast mass, a negative mammogram must not discourage biopsy of a clinically suspicious lesion. Electronically Signed By: Ritchie huang/edwar:05/05/2020 12:18:50 letter sent: Normal Exam ACR BI-RADS Category 1: Negative 3341F
== END ==
PROVIDERS: PCP Internal Medicine; Referring Provider Internal Medicine; Visit Provider Internal Medicine
DX: Z12.31 Encounter for screening mammogram for malignant neoplasm of breast (principal)
CPT/HCPCS: 77063; 77067

== ENCOUNTER → 2023-04-26 15:42 | Outpatient (CLI) | payer OTHER, SELFPAY ==
--- NOTE | 2023-04-26 | DI.MG.S_ITS ---
BILATERAL DIGITAL SCREENING MAMMOGRAM 3D/2D WITH CAD WITH AUGMENTATION: 04/26/2023 CLINICAL: Routine screening. Comparison is made to exam dated: 05/05/2020 mammogram - [facility]. There are scattered areas of fibroglandular density in both breasts (category b / 25%-50% glandular tissue). Current study was also evaluated with a Computer Aided Detection (CAD) system. Bilateral breast implants are intact. No significant masses, calcifications, or other findings are seen in either breast. There has been no significant interval change. IMPRESSION: BENIGN There is no mammographic evidence of malignancy. A 1 year screening mammogram is recommended. Based on the Tyrer Cuzick model (a risk assessment model) the patient's lifetime risk is 6.4% and her 10 year risk is 1.2%. According to the ACR, ACS, and NCCN guidelines, an annual breast MRI exam along with mammogram is recommended if the patient's lifetime risk is 20% or greater. This exam was interpreted at Station ID: [id number]. NOTE: For mammograms, a report in lay terms will be sent to the patient. Approximately 15% of breast malignancies will not be visualized mammographically. In the management of a palpable breast mass, a negative mammogram must not discourage biopsy of a clinically suspicious lesion. Electronically Signed By: Marla Gómez M.D., PH.D eb/penrad:04/26/2023 23:25:18 letter sent: Normal Exam ACR BI-RADS Category 2: Benign Finding(s) 3342F
== END ==
LOC: MAMMO 15:43
PROVIDERS: PCP Internal Medicine; Referring Provider Internal Medicine; Visit Provider Internal Medicine
DX: Z12.31 Encounter for screening mammogram for malignant neoplasm of breast (principal); R92.323 Mammographic fibroglandular density, bilateral breasts
CPT/HCPCS: 77063; 77067

== ENCOUNTER → 2023-05-06 12:49 | Outpatient (CLI) | payer OTHER, SELFPAY ==
[2023-05-06 13:01] LABS: Appearance Urine UA CLEAR; Bilirubin Urine UA NEGATIVE (NEGATIVE); Color Urine UA YELLOW; Glucose Urine UA NEGATIVE (Negative); Ketones Urine UA NEGATIVE (NEGATIVE); Leukocyte Esterase Urine UA NEGATIVE (NEGATIVE); Nitrite Urine UA NEGATIVE (Negative); Occult Blood Urine UA NEGATIVE (Negative); Protein Urine UA NEGATIVE (Negative); Specific Gravity Urine UA <=1.005 (1.000-1.035); Urobilinogen Urine UA 0.2 E.U./dL (0.2)
[2023-05-06 13:03] LABS: pH Urine UA 6.5 (4.5-8.0)
[2023-05-06 13:05] LABS: Urine Volume 10mL (spun)
[2023-05-06 13:07] LABS: Bacteria Urine None Seen; Culture Indicated Urine Cult Not Indicated; RBC Urine None Seen (0-5/HPF); Squamous Epithelial Cell Urine None Seen (0-5/HPF); WBC Urine None Seen (0-5/HPF)
== END ==
PROVIDERS: PCP Internal Medicine; Visit Provider Physician Assistant Surgical
DX: N23 Unspecified renal colic (principal)
CPT/HCPCS: 81001

== ENCOUNTER 2023-05-13 01:45 | Emergency (ER) | payer OTHER, SELFPAY ==
[2023-05-13 01:48] VITALS: BP 127/83; PULSE 88; RESP 16; TEMP 37; O2SAT 99; BMI 28.0
--- NOTE | 2023-05-13 02:02 | ED_ITS ---
HPI - Headache General Chief Complaint: Headache Stated Complaint: headaches Time Seen by Provider: 05/13/23 01:51 Source: patient Mode of arrival: Ambulatory Limitations: no limitations History of Present Illness HPI Narrative: Patient is a 47-year-old female. Frequently gets what she describes as migraine headaches. She states about once a month she gets a headache. She describes it as discomfort in the back of her head that radiates around to the front. She states she gets a lot of tension in this area. She got this particular headache that brought her to the emergency department today proximally 2 days ago. She did see her chiropractor. She states she got no relief from this. She did try some Robaxin that she was prescribed for headaches like this at home without any improvement. Denies fevers. States it feels just like her prior headache. No specific trauma. Was not sudden onset. Related Data Previous Rx's Medication Instructions Recorded triamcinolone acetonide 0.1 % 0 gm topical BID ##15 04/09/17 topical ointment gabapentin 300 mg capsule 300 mg PO BEDTIME #30 caps 09/25/17 trazodone 100 mg tablet 100 mg PO HS #30 tabs 02/05/18 metronidazole 500 mg tablet 500 mg PO TID #15 tabs 09/24/19 metronidazole 500 mg tablet 500 mg PO TID #15 tabs 09/24/19 ondansetron 4 mg disintegrating 4 mg PO Q6H PRN nausea and 09/25/19 tablet vomiting #10 tabs methocarbamol 500 mg tablet 500 mg PO TID PRN muscle spasm #20 07/01/21 tabs omeprazole magnesium 20 mg 20 mg PO QAM #30 tabs 07/01/21 tablet,delayed release tramadol 50 mg tablet 50 mg PO DAILY PRN pain #14 tabs 07/01/21 methocarbamol 750 mg tablet 750 mg PO Q8H PRN muscle pain #30 05/13/23 tabs Allergies Allergy/AdvReac Type Severity Reaction Status Date / Time ciprofloxacin [From [facility]RO] Allergy Mild RASH Verified 05/06/23 12:22 Review of Systems Constitutional Constitutional: Reports system reviewed and no additional complaints, except as documented Eyes Eyes: Reports system reviewed and no additional complaints, except as documented ENT Ears, Nose, Mouth, and Throat: Reports system reviewed and no additional co mplaints, except as documented Musculoskeletal Musculoskeletal: Reports system reviewed and no additional complaints, except as documented Integumentary/Breasts Skin/Breast: Reports system reviewed and no additional complaints, except as documented Neurologic Neurologic: Reports system reviewed and no additional complaints, except as documented Patient History Surgical History History of breast augmentation Status post hernia repair (12/23/13) Status post tubal ligation Status post laparoscopic cholecystectomy Family History Brother CAD (coronary artery disease) Father Epilepsy Mother Age: 90 Diabetes mellitus Obesity High cholesterol Social History Smoking Status: Never smoker Smoking Status: Never smoker alcohol intake frequency: holidays/special occasions only Substance Use Type: does not use Exam Initial Vital Signs Initial Vital Signs: Vital Signs Temperature 98.6 F 05/13/23 01:48 Pulse Rate 88 05/13/23 01:48 Respiratory Rate 16 05/13/23 01:48 Blood Pressure 127/83 05/13/23 01:48 Pulse Oximetry 99 05/13/23 01:48 Oxygen Delivery Method Room Air 05/13/23 01:48 Const General: cooperative HENMT Head: normal to inspection and normocephalic Eyes General: Yes appearance normal, both eyes and all related structures Back/Spine/Pelvis Cervical Spine: cervical muscular tenderness Neuro General: patient alert, patient awake, patient oriented x3 and moves all extremities Course Orders Ordered: Discontinued Medications Diphenhydramine HCl (Diphenhydramine 50 Mg/Ml Vial) 25 mg IV NOW ONE Stop: 05/13/23 02:01 Last Admin: 05/13/23 02:12 Dose: 25 mg Documented By: SB Ketorolac Tromethamine (Ketorolac 30 Mg/Ml Vial) 30 mg IV NOW ONE Stop: 05/13/23 02:01 Last Admin: 05/13/23 02:11 Dose: 30 mg Documented By: SB Metoclopramide HCl (Metoclopramide 10 Mg/2 Ml Inj) 10 mg IV NOW ONE Stop: 05/13/23 02:01 Last Admin: 05/13/23 02:11 Dose: 10 mg Documented By: SB Vital Signs Vital signs: Vital Signs - 8 hr 05/13/23 01:48 Temperature 98.6 F Pulse Rate 88 Respiratory Rate 16 Blood Pressure 127/83 Pulse Oximetry 99 Oxygen Delivery Method Room Air MDM - Headache MDM Narrative Medical decision making narrative: Given what she describes her symptoms are more consistent with a tension headache rather than a migraine headache. After medications here in the emergency department she stated that she was feeling much better. Her headache is not completely gone. No indication for radiologic studies today. Low suspicion for meningitis. No trauma. She was going to see physical therapy and chiropractic. Will refill her Robaxin as the prescription that she has is about 1 point 5 years old and main not be as effective as a new prescription. Advised she call her primary doctor to discuss further evaluation and treatment. She was given return precautions. She expressed understanding and agreement. Discharge Plan Departure Patient Disposition: Home Clinical Impression: Headache Instructions: DI for Headache Activity Restrictions/Additional Instructions: Recommend you continue to take all of your medications as directed. I also recommend that you continue to go to physical therapy and also the chiropractor. If your headaches continue or seem to be getting worse despite this you may need referral to see a headache specialist. Your primary doctor can do this. Return to the emergency department for new symptoms. Prescriptions: New methocarbamol 750 mg tablet 750 mg PO Q8H PRN (Reason: muscle pain) Qty: 30 0RF No Action methocarbamol 500 mg tablet 500 mg PO TID PRN (Reason: muscle spasm) Qty: 20 0RF Rx Instructions: will cause drowsiness, do not drive tramadol 50 mg tablet 50 mg PO DAILY PRN (Reason: pain) Qty: 14 0RF omeprazole magnesium 20 mg tablet,delayed release (DR/EC) 20 mg PO QAM Qty: 30 0RF Rx Instructions: take 1st thing in the morning before any medications to help prevent stomach ulcer triamcinolone acetonide 0.1 % ointment 0 gm Topical BID Qty: 15 0RF gabapentin 300 mg capsule 300 mg PO BEDTIME Qty: 30 2RF trazodone 100 mg tablet 100 mg PO HS Qty: 30 2RF ondansetron 4 mg tablet,disintegrating 4 mg PO Q6H PRN (Reason: nausea and vomiting) Qty: 10 0RF metronidazole 500 mg tablet 500 mg PO TID Qty: 15 0RF metronidazole 500 mg tablet 500 mg PO TID Qty: 15 0RF Referrals: Deidre Enamorado ARNP [Primary Care Provider] - Stand Alone Forms: Patient Portal/API
[2023-05-13] MEDS: METOCLOPRAMIDE 10 MG/2 ML INJ IV (02:11)
[2023-05-13] MEDS: KETOROLAC 30 MG/ML VIAL IV (02:11)
[2023-05-13] MEDS: diphenhydrAMINE 50 MG/ML VIAL 25 MG IV (02:12)
[2023-05-13 03:15] VITALS: BP 107/58; PULSE 87; RESP 16; TEMP 36.7; O2SAT 98
== END 2023-05-13 03:15 | disposition home or self-care (01) ==
PROVIDERS: Emergency Provider Emergency Medicine; PCP Internal Medicine
DX: R51.9 Headache, unspecified (principal)
CPT/HCPCS: 96374; 96375; 99283; J1200; J1885; J2765

== ENCOUNTER → 2024-01-25 16:41 | Outpatient (CLI) | payer SELFPAY | PROVIDERS: PCP Internal Medicine; Visit Provider Registered Nurse | DX: R30.0 Dysuria (principal) | CPT/HCPCS: 87077; 87086; 87186 ==

== ENCOUNTER → 2024-04-20 14:15 | Outpatient (CLI) | payer SELFPAY | PROVIDERS: PCP Internal Medicine; Visit Provider Registered Nurse | DX: R30.0 Dysuria (principal) | CPT/HCPCS: 87077; 87086; 87186 ==